=== PATIENT | female | born 1995 | race Two or more races ===

== ENCOUNTER 2023-06-06 17:16 | Emergency (ER) | payer OTHER ==
[~2023-06-06] VITALS: Ht 162.6 cm; Wt 90.9 kg
[2023-06-06 18:19] LABS: COVID AG,FIA SOURCE NASAL SWAB
[2023-06-06 19:18] LABS: SARS-COV2 (COVID) ANTIGEN,FIA Negative (Negative)
[2023-06-06 19:21] LABS: INFLUENZA TYPE A NEGATIVE FOR TYPE A (NEGATIVE); INFLUENZA TYPE B NEGATIVE FOR TYPE B (NEGATIVE)
[2023-06-06 19:23] LABS: RAPID GROUP A STREP NEGATIVE (NEGATIVE)
[2023-06-06 21:06] VITALS: BP 137/73; PULSE 86; RESP 18; TEMP 97.9
[2023-06-06] MEDS: IBUPROFEN 600 MG TABLET PO ONE (22:40)
[2023-06-06] MEDS: ACETAMINOPHEN 500 MG TABLET PO ONE (22:41)
[2023-06-06] MEDS: GuaiFENesin/D-METHORPHAN [SUGAR-FREE] 200-20MG/10 ML SYRUP UDCUP PO ONE (22:41)
[2023-06-06] MEDS ORDERED: IBUP-1554 PO (22:51)
[2023-06-06] MEDS ORDERED: ACET-66 PO (22:51)
[2023-06-06] MEDS ORDERED: GUAIFDM PO (22:51)
== END 2023-06-06 23:00 | disposition home or self-care (01) ==
LOC: EMS 17:17
DX: J06.9 Acute upper respiratory infection, unspecified (principal); Z20.822 Contact with and (suspected) exposure to COVID-19
CPT/HCPCS: 87430; 87804; 99284; Z7502; Z7610